=== PATIENT | male | born 1975 | race Caucasian/White ===

== ENCOUNTER 2018-08-15 11:15 | Emergency (ER) | payer BC, SELFPAY ==
--- NOTE | 2018-08-15 11:21 | W.ED.GENAD ---
Discharge Plan Disposition Patient Disposition: HOME Condition: Stable Discharge Details Chief Complaint: Cellulitis Clinical Impression: Cellulitis of right middle finger Primary Care Provider: Bernadette Florentino ED Provider: Godfrey Chávez Home Meds and New Rx's Prescriptions: New sulfamethoxazole-trimethoprim [Bactrim DS] 800-160 mg tablet 1 tab PO BID Qty: 14 RF: 0 amoxicillin-pot clavulanate [Augmentin] 875-125 mg tablet 1 tab PO BID Qty: 14 RF: 0 No Action naproxen sodium [Aleve] 220 MG tablet 440 mg PO BID RF: 0 sumatriptan succinate 100 MG tablet 1 tab PO PRN PRNRF: 0 Discharge Instructions Instructions: Cellulitis (ED) Additional Instructions: you should be contacted with an appointment with orthopedics if you have severe worsening of pain or redness spreading up the hand or down the finger return to the emergency department you can take 1000mg tylenol and 600mg ibuprofen every 6 hours as needed for pain Medical Decision Making 42 yo male comes in with several days of right middle finger swelling and pain. He states over a week or so ago he had a splinter in the finger that he removed and started to have swelling of the finger and redness so came here. on exam the proximal right anterior middle finger is swollen and red. HE does have full flexion of the finger and no pain elsehwere along the finger to suggest flexor tenosynovitis at this time. There is no flucutance and on bedside u/s has no evidence of retained foreign body or abscess at this time. Given the amount of swelling that is located I am starting him on abx but would also like a reevaluation by orthopedics this week if possible for reeval and advised strict return precautions Differential Diagnosis cellulitis, abscess HPI General Mode of arrival: ambulatory. Date/Time Provider Initiated Documentation: 08/15/18 11:21. Limitations to Documentation: no limitations. Information obtained by: patient. History of Present Illness 42 year old M presents to the emergency department with the chief complaint of right middle finger swelling, Quality is described as aching, and is localized to the right and upper extremity. Patient reports no radiation. Patient started experiencing this day(s) (4) and it has been constant. No relieving factors improve symptom(s), No exacerbating factors reported . Patient notes no other symptoms.. Patient did receive the following treatments prior to arrival, none Related Data Home Medications Medication Instructions Recorded Confirmed sumatriptan succinate 1 tab PO PRN PRN 03/09/14 08/15/18 naproxen sodium [Aleve] 440 mg PO BID 09/17/16 08/15/18 amoxicillin-pot clavulanate 1 tab PO BID #14 tab 08/15/18 [Augmentin] sulfamethoxazole-trimethoprim 1 tab PO BID #14 tab 08/15/18 [Bactrim DS] Previous Rx's Medication Instructions Recorded amoxicillin-pot clavulanate 1 tab PO BID #14 tab 08/15/18 [Augmentin] sulfamethoxazole-trimethoprim 1 tab PO BID #14 tab 08/15/18 [Bactrim DS] Allergies Allergy/AdvReac Type Severity Reaction Status Date / Time No Known Allergies Allergy Unverified 08/15/18 11:33 Review of Systems Review of Systems All systems reviewed & are unremarkable except as noted in HPI and below Constitutional Denies chills and Denies fever(s) Cardiovascular Denies chest pain and Denies dyspnea Respiratory Denies dyspnea Gastrointestinal Denies abdominal pain, Denies nausea and Denies vomiting Musculoskeletal Denies joint swelling [facility] Social History Smoking/Tobacco Use Status: Current-Occasional Exam Const General: no acute distress Orientation: alert HENMT Head: normal to inspection Ears: external ears normal General nose exam: external nose normal Mouth: moist mucous membranes Eyes General: appearance normal, both eyes and all related structures Neck Neck: normal visual inspection Resp Effort & Inspection: normal respiratory effort and able to speak in complete sentences Cardio Rate: regular rate Skin General skin exam: no rashes or lesions noted Neuro General: alert and oriented x3 Extrem General: normal capillary refill and other (see medical decision making) Right upper extremity: normal capillary refill Psych Mental Status: mental status grossly normal
[2018-08-15 11:31] VITALS: BP 133/89; PULSE 69; RESP 16; TEMP 36.6; O2SAT 99
--- NOTE | 2018-08-15 11:45 | ED.GENADUL_ITS ---
Discharge Plan Disposition Patient Disposition: HOME Condition: Stable Discharge Details Chief Complaint: Cellulitis Clinical Impression: Cellulitis of right middle finger Primary Care Provider: Bernadette Florentino ED Provider: Godfrey Chávez Home Meds and New Rx's Prescriptions: New sulfamethoxazole-trimethoprim [Bactrim DS] 800-160 mg tablet 1 tab PO BID Qty: 14 RF: 0 amoxicillin-pot clavulanate [Augmentin] 875-125 mg tablet 1 tab PO BID Qty: 14 RF: 0 No Action naproxen sodium [Aleve] 220 MG tablet 440 mg PO BID RF: 0 sumatriptan succinate 100 MG tablet 1 tab PO PRN PRNRF: 0 Discharge Instructions Instructions: Cellulitis (ED) Additional Instructions: you should be contacted with an appointment with orthopedics if you have severe worsening of pain or redness spreading up the hand or down the finger return to the emergency department you can take 1000mg tylenol and 600mg ibuprofen every 6 hours as needed for pain Medical Decision Making 42 yo male comes in with several days of right middle finger swelling and pain. He states over a week or so ago he had a splinter in the finger that he removed and started to have swelling of the finger and redness so came here. on exam the proximal right anterior middle finger is swollen and red. HE does have full flexion of the finger and no pain elsehwere along the finger to suggest flexor tenosynovitis at this time. There is no flucutance and on bedside u/s has no evidence of retained foreign body or abscess at this time. Given the amount of swelling that is located I am starting him on abx but would also like a reevaluation by orthopedics this week if possible for reeval and advised strict return precautions Differential Diagnosis cellulitis, abscess HPI General Mode of arrival: ambulatory . Date/Time Provider Initiated Documentation: 08/15/18 11:21 . Limitations to Documentation: no limitations . Information obtained by: patient . History of Present Illness 42 year old M presents to the emergency department with the chief complaint of right middle finger swelling, Quality is described as aching, and is localized to the right and upper extremity. Patient reports no radiation. Patient started experiencing this day(s) (4) and it has been constant. No relieving factors improve symptom(s), No exacerbating factors reported . Patient notes no other symptoms.. Patient did receive the following treatments prior to arrival, none Related Data Home Medications Medication Instructions Recorded Confirmed sumatriptan succinate 1 tab PO PRN PRN 03/09/14 08/15/18 naproxen sodium [Aleve] 440 mg PO BID 09/17/16 08/15/18 amoxicillin-pot clavulanate 1 tab PO BID #14 tab 08/15/18 [Augmentin] sulfamethoxazole-trimethoprim 1 tab PO BID #14 tab 08/15/18 [Bactrim DS] Previous Rx's Medication Instructions Recorded amoxicillin-pot clavulanate 1 tab PO BID #14 tab 08/15/18 [Augmentin] sulfamethoxazole-trimethoprim 1 tab PO BID #14 tab 08/15/18 [Bactrim DS] Allergies Allergy/AdvReac Type Severity Reaction Status Date / Time No Known Allergies Allergy Unverified 08/15/18 11:33 Review of Systems Review of Systems All systems reviewed & are unremarkable except as noted in HPI and below Constitutional Denies chills and Denies fever(s) Cardiovascular Denies chest pain and Denies dyspnea Respiratory Denies dyspnea Gastrointestinal Denies abdominal pain, Denies nausea and Denies vomiting Musculoskeletal Denies joint swelling [facility] Social History Smoking/Tobacco Use Status: Current-Occasional Exam Const General: no acute distress Orientation: alert HENMT Head: normal to inspection Ears: external ears normal General nose exam: external nose normal Mouth: moist mucous membranes Eyes General: appearance normal, both eyes and all related structures Neck Neck: normal visual inspection Resp Effort & Inspection: normal respiratory effort and able to speak in complete sentences Cardio Rate: regular rate Skin General skin exam: no rashes or lesions noted Neuro General: alert and oriented x3 Extrem General: normal capillary refill and other (see medical decision making) Right upper extremity: normal capillary refill Psych Mental Status: mental status grossly normal
== END 2018-08-15 11:50 | disposition home or self-care (01) ==
LOC: ER 12:09
PROVIDERS: Emergency Provider Emergency Medicine; PCP Nurse Practitioner Family
DX: L03.011 Cellulitis of right finger (principal)
CPT/HCPCS: 99283

== ENCOUNTER 2020-10-02 09:41 | Emergency (ER) | payer BC, SELFPAY ==
[2020-10-02 09:45] VITALS: BP 147/109; PULSE 90; RESP 16; TEMP 36; O2SAT 99
--- NOTE | 2020-10-02 09:50 | W.ED.GENAD ---
Discharge Plan Disposition Patient Disposition: HOME Condition: Stable Discharge Details Clinical Impression: Laceration of skin of left wrist Primary Care Provider: Bernadette Florentino ED Provider: Araceli Gonzalez Home Meds and New Rx's Prescriptions: No Action naproxen sodium [Aleve] 220 MG tablet 440 mg PO BID RF: 0 Discharge Instructions Instructions: Laceration (ED) Additional Instructions: Leave wound alone for the first 12 to 24 hours. Tomorrow morning you may wash laceration under running soap and water. Keep clean and dry. No soaking. Return to the ED for any signs of infection including increased redness, swelling, drainage worsening pain or any concerns. Have sutures removed in 7 days. Please take Tylenol or Ibuprofen with food every 4-6 hours as needed for pain and swelling. Follow up with primary care provider in 3-5 days if needed. Return to ED sooner if any worsening or concerns. Increase oral fluids. Referrals: Bernadette Florentino [Primary Care Provider] - Medical Decision Making 45-year-old male presents to the ER chief complaint of left wrist laceration. Patient states that he was using woodworking tools (chisel) to cut a piece of plastic. This occurred approximately 30 minutes prior to arrival. He does have a approximately 1.5 cm laceration noted to the palmar surface of his left wrist, bleeding is controlled at this time. I did discuss plan of care including offering imaging, patient does state that he was not working with wood and was trying to cut a piece of plastic, he states that there was a little possibility for retained foreign body. Therefore at this time imaging was not done. 1004: Patient became lightheaded during clean per RN and tech staff, patient was placed in soft reverse Trendelenburg, he feels better. 1038: Laceration was infiltrated with 1% lidocaine with epinephrine anesthesia was partially achieved, laceration repaired with four-point 0 Ethilon 3 simple interrupted sutures. Wound was well approximated. Patient tolerated without difficulty. Discussed home care and to return to have sutures removed in 5 to 7 days. Discussed strict return instructions including signs of infection and or wound opening back up. Patient verbalized understanding. Patient did receive a Tdap booster here in the department today. This text was generated using [employer] system, please disregard any oddities of phrase or misspellings. HPI General Mode of arrival: ambulatory. Date/Time Provider Initiated Documentation: 10/02/20 09:41. Limitations to Documentation: no limitations. Information obtained by: patient. HPI Narrative: 45-year-old male presents to the ER chief complaint of left wrist laceration. Patient states that he was using woodworking tools (chisel) to cut a piece of plastic. This occurred approximately 30 minutes prior to arrival. He does have a approximately 1.5 cm laceration noted to the palmar surface of his left wrist, bleeding is controlled at this time. Related Data Home Medications Medication Instructions Recorded Confirmed naproxen sodium [Aleve] 440 mg PO BID 09/17/16 10/02/20 Allergies Allergy/AdvReac Type Severity Reaction Status Date / Time No Known Allergies Allergy Unverified 08/24/18 09:44 General Stated Complaint: Laceration ARACELI: 4 Review of Systems All systems reviewed & are unremarkable except as noted in HPI and below Integumentary/Breasts Skin/Breast: Reports wounds (Laceration left wrist accidental, superficial underlying areas are intact.) [facility] Social History Smoking/Tobacco Use Status: Current-Occasional Smoking risk assessment performed?: Yes Alcohol Intake: never Drug use: Never Substance use type: does not use Do you feel safe at home: Yes Do you feel safe in your relationship?: Yes Exam Narrative Exam Narrative: Constitutional: Alert and oriented x3. Appears stated age. Normal body habitus. Head: Normocephalic, no trauma. Chest: RRR, Normal S1, S2, distal pulses intact. Resp: Lungs clear to auscultation bilaterally, no wheezes, rales, or rhonchi. Musculoskeletal: Normal gait, laceration noted approximately 1.5 cm to the palmar surface of the left wrist, bleeding is controlled upon arrival, underlying anatomy is intact. Patient has intact wrist flexion and extension, is able to flex and extend hand. Skin: No suspicious rashes or lesions. Capillary refill less than 2 sec. Extrem Hand/finger images: 1. 1.5 cm linear laceration Course Vital Signs Vital signs: Vital Signs Temperature 36.0 C L 10/02/20 09:45 Pulse 90 10/02/20 09:45 Respiratory Rate 16 10/02/20 09:45 Blood Pressure 147/109 H 10/02/20 09:45 Pulse Oximetry 99 10/02/20 09:45 Temperature 36.0 C L 10/02/20 09:45 Temperature Source Skin 10/02/20 09:45 Pulse 90 10/02/20 09:45 Respiratory Rate 16 10/02/20 09:45 Respiratory Effort 10/02/20 09:47 Blood Pressure 147/109 H 10/02/20 09:45 Blood Pressure Position Sitting 10/02/20 09:45 Pulse Oximetry 99 10/02/20 09:45 Oxygen Delivery Method Room Air 10/02/20 09:45 Oxygen Flow Rate 0 10/02/20 09:45 Procedures Laceration Laceration 1: Site: upper extremity (Left wrist) Side (If applicable): left Size (cm): 1.5 Description: linear Depth: simple, single layer Local Anesthetic: Lidocaine 1% and with Epi Amount of anesthesia used (mL): 1.5 Pre-repair: wound explored, irrigated extensively and deep structures intact Skin layer closed with: nylon (ethilon) Size (cm): 4-0 Number of sutures: 3 Technique: simple, interrupted
== END 2020-10-02 11:00 | disposition home or self-care (01) ==
PROVIDERS: Emergency Provider Registered Nurse Emergency; PCP Nurse Practitioner Family
DX: S61.512A Laceration without foreign body of left wrist, initial encounter (principal); W26.8XXA Contact with other sharp object(s), not elsewhere classified, initial encounter; Y99.0 Civilian activity done for income or pay
CPT/HCPCS: 12001; 90471

== ENCOUNTER 2023-12-17 11:54 | Emergency (ER) | payer BC, SELFPAY ==
--- NOTE | 2023-12-17 11:59 | ED.GENADUL_ITS ---
Discharge Plan Disposition Patient Disposition: Home Discharge Details Clinical Impression: Laceration of hand, left Primary Care Provider: Bernadette Florentino ED Provider: Garry Monsalve Home Meds and New Rx's Prescriptions: No Action naproxen sodium [Aleve] 220 MG tablet 440 mg PO BID Discharge Instructions Instructions: Laceration (ED) Additional Instructions: You were seen in the emergency department for your left hand laceration laceration which was closed with a total of 6 sutures that will need to be removed in 7 to 10 days. As we discussed, please keep your wound clean, dry and covered. Please do not soak in a tub, swim or engage in any activities which could introduce dirt into your wound. You may return to the emergency department, go to urgent care or go to your primary care provider in 7 to 10 days to have your stitches removed. As we discussed if you develop any foul- smelling drainage fevers streaking signs of infection or have any other concerns please return to the emergency department. For your pain please take medications as follows: 1. Take acetaminophen (Tylenol), 1,000 mg (two 500 mg tabs) every 6 hours [2. Take ibuprofen (Advil), 400 mg every 6 hours.] Discharge Data Discharge Date/Time-TO BE ENTERED AT DEPARTURE: 12/17/23 13:44 HPI General Date/Time Provider Initiated Documentation: 12/17/23 11:59 . HPI Narrative: MDM This is an overall very well-appearing [id number] normothermic and not tachycardic 48-year-old male with left long finger lacerations which will require primary closure in the ED. Patient's tetanus has been updated less than 5 years ago so no indication for repeat tetanus immunization. No preceding chest pain or syncope so I did not obtain ECG. No shortness of breath to suggest PE. No pain out of proportion to suggest necrotizing soft tissue infection. No fluctuance to suggest felon. Patient has intact range of motion in his left hand so I am not concerned for any tendinous injuries. Patient is not a diabetic and does not have any increased risk for poor wound healing so we will defer prophylactic antibiotics at this point in time. Patient and I discussed return to the ED for streaking signs of infection fevers chills or foul-smelling drainage. He understood his return indications and was discharged with an empiric trial of expectant outpatient management. HPI This is a previously healthy 48-year-old [id number] male arriving to the emergency department via private vehicle following lacerations he sustained just prior to arrival using a circular saw at a job site. Patient inadvertently lost control of the saw. He has had no limitations in his range of movement. His bleeding has been controlled. His tetanus was updated less than 5 years ago. He reports lacerations to his left long and index fingers. He woke in his usual state of health with no chest pain shortness of breath nausea vomiting dysuria nor frequency. Exam General: Well-appearing in no acute distress speaking in complete sentences. Head: Normocephalic, atraumatic. Eye: Extraocular eye movements intact. No conjunctival injection. No scleral icterus. Ear, nose, mouth, throat: Grossly normal inspection. Normal voice, handling secretions normally. Neck: Trachea midline. Cardiovascular: Well-perfused distal extremities. Respiratory: Nonlabored respiration. Gastrointestinal: Nondistended abdomen. Musculoskeletal: Left hand has lacerations to the index and long fingers. Left hand warm and well-perfused with less than 2-second cap refill in the left fingertips. Sensation and motor function intact in the left hand across the radial, median, and ulnar nerve distributions. 2+ left radial pulse. Left index finger: 3 superficial lacerations on the palmar aspect of the left index finger that are hemostatic. Full range of motion of the left index finger Left long finger: 2 approximately 2 cm hemostatic lacerations to the palmar aspect of the left long finger distal to the DIP joint. Full range of motion in left index finger across the MCP, PIP, and DIP joints. Skin: Normal for age and race, grossly normal temperature and turgor. No acute rash. Neurologic: Alert and appropriate, no apparent acute deficits. Psychiatric: Mood and manner are appropriate. Grooming and personal hygiene are appropriate. Related Data Home Medications Medication Instructions Recorded Confirmed naproxen sodium 220 mg tablet 440 mg PO BID 09/17/16 10/02/20 (Aleve) Allergies Allergy/AdvReac Type Severity Reaction Status Date / Time No Known Allergies Allergy Unverified 08/24/18 09:44 General ARACELI: 4 Procedures Laceration Laceration 1: Site: hand Side (If applicable): left Size (cm): 3 Description: linear Depth: simple, single layer Local Anesthetic: other anesthetic (LET & digital block) Amount of anesthesia used (mL): 3 Pre-repair: wound explored and irrigated extensively Skin layer closed with: nylon Size (cm): 4-0 Number of sutures: 4 Technique: simple, interrupted Size: 4-0 (Prolene) Laceration 2: Site: hand Side (If applicable): left Size (cm): 2 Description: linear Depth: simple, single layer Local Anesthetic: other anesthetic (LET & digital block) Amount of anesthesia used (mL): 3 Pre-repair: wound explored and irrigated extensively Skin layer closed with: nylon Size (cm): 4-0 Number of sutures: 2 Technique: simple, interrupted Subcutaneous layer closed with: other (Prolene) Medical Decision Making Quality:SDOH Health Related Social Needs: No Data to Display PFSH All Active Problems (Updated 12/17/23 @ 12:18 by Garry Monsalve MD) Laceration of hand, left (Acute) Laceration of skin of left wrist (Acute) Social History Smoking/Tobacco Use Status: Current-Occasional Smoking risk assessment performed?: Yes Alcohol Intake: never Drug use: Never Substance use type: does not use Do you feel safe at home: Yes Do you feel safe in your relationship?: Yes
[2023-12-17 12:00] VITALS: BP 123/94; PULSE 84; RESP 15; TEMP 37.1; O2SAT 98
[2023-12-17] MEDS: Lidocaine/Epinephri/Tetracaine Topical Gel 3 ML TP (12:18)
[2023-12-17 13:44] VITALS: BP 120/70; PULSE 72; RESP 16; TEMP 37.1; O2SAT 98
== END 2023-12-17 13:44 | disposition home or self-care (01) ==
LOC: ER 13:27
PROVIDERS: Emergency Provider Emergency Medicine; PCP Nurse Practitioner Family
DX: S61.412A Laceration without foreign body of left hand, initial encounter (principal); S61.512A Laceration without foreign body of left wrist, initial encounter; W31.2XXA Contact with powered woodworking and forming machines, initial encounter; Y99.0 Civilian activity done for income or pay
CPT/HCPCS: 12002; 64450

== ENCOUNTER 2024-08-05 08:13 | Day surgery (SDC) | payer OTHER, SELFPAY ==
--- NOTE | 2024-08-04 08:57 | W.PM.DSUDISC ---
Date of service: 08/05/24 Discharge Plan Disposition Patient Disposition: Home Condition: Good Discharge Details Reason For Visit: screening colonoscopy Attending Provider: Jovan Callaway Primary Care Provider: Bernadette Bailey Home Meds and New Rx's Prescriptions: Continued naproxen sodium [Aleve] 220 MG tablet 440 mg PO BID hydroxyzine HCl 25 mg tablet 25 mg PO QHS Rx Instructions: 1-2 tab by mouth at bedtime sumatriptan succinate 100 mg tablet See Rx Instructions PO .COMPLEX Rx Instructions: take 1 tab at onset of headache; if no relief, may repeat 1 tab after at least 2 hrs; max = 2 tabs/24 hrs PO trazodone 50 mg tablet 50 mg PO QHS PRN triamcinolone acetonide 0.5 % cream 1 applic topical BID ondansetron 4 mg tablet,disintegrating 4 mg PO Q8H Qty: 10 0RF Discontinued bisacodyl [Dulcolax (bisacodyl)] 5 mg tablet,delayed release (DR/EC) 5 mg PO ONCE Qty: 4 0RF Rx Instructions: Take per colonoscopy instructions provided by ordering providers office polyethylene glycol 3350 17 gram/dose powder 17 g PO ONCE Qty: 238 0RF Rx Instructions: Take per colonoscopy instructions provided by ordering providers office Discharge Instructions Additional Instructions: Ramy was very nice meeting you today, and I hope you are comfortable through the colonoscopy. Everything went very smoothly. Your prep was excellent negative everything fine. I did not see any signs of tumors, polyps, or any other abnormalities. With a negative screening colonoscopy and only a single second-degree relative with a history of colon cancer, I would consider you low risk, and recommended 10-year interval for your next screening. If any other family members turned up with colon cancer, or with adenomatous polyps, then you could shorten that interval to every 5 years. If you have any questions at all, please do not hesitate to ask at any point. 1. If tolerated, consume a soft, low fiber diet for 1-2 days. [address] not drive, drink alcohol, operate machinery, make critical decisions, or do activities that require coordination or balance for 24 hours. 3. Because air was put into your colon during the procedure, expelling air from your rectum (passing gas or farting) is normal. 4. You may not have a bowel movement for 1-3 days because of the colonoscopy prep. This is normal. 5. Go directly to the emergency room if you notice any of the following: Develop chills (warm to touch), or if you have a thermometer and your temperature is above 101 Difficulty breathing or difficultly swallowing Persistent vomiting Severe abdominal pain, other than gas cramps Severe chest pain Black, tarry stools Any bleeding ? exceeding one tablespoon 6. Call your physician if the site where your intravenous was started becomes red, swollen, painful, and warm to touch. 7. Your physician has reviewed your pre-procedure medications. Please continue to take those medications as previously ordered. You will be given specific information/education regarding any changes to your medications before leaving. Stand Alone Forms: Anesthesia Discharge InstCamron Car (DSU) Activity:: Activity as Tolerated Diet:: As Tolerated Discharge Orders Discharge Orders: Discharge Order (Routine); Ordered 08/04/24 Ordered By: Jovan Callaway DS: Diagnosis Discharge Diagnosis (1) Encounter for screening colonoscopy: Status: Acute Asessment and Plan: Negative screening colonoscopy; follow-up in 10 years
--- NOTE | 2024-08-04 08:58 | W.COLOREPORT ---
Date of service: 08/05/24 Time of Service: 10:06 Colonoscopy Report Date of procedure: 08/05/24 Pre-op diagnosis general: screening colonoscopy Post-op diagnosis procedure note: other (Negative screening colonoscopy) Procedure: colonoscopy Surgeon: Jovan Callaway Anesthesia Type: General:No Airway Estimated blood loss (mL): 0 Pathology: none sent Complications: None Disposition: same day Indications: Ramy is a 48 year old man who needs a screening colonoscopy Prep: Miralax/Dulcolax Procedure Start Time: 09:45 Procedure End Time: 09:59 Retraction Time: 7 Findings: Normal screening colonoscopy Procedure Description: After the induction of anesthesia, and with Ramy in left lateral decubitus position, I began by performing an external anorectal exam.? Perineum and skin were normal, as was the anal verge.? There was no evidence of external hemorrhoids.? Next, I performed a digital rectal exam.? I did not appreciate any abnormal findings.? Next, I advanced a colonoscope into the rectal vault.? I performed retroflexion.? This appeared normal.? Using insufflation, I then advanced the colonoscope beyond the rectal folds and into the sigmoid colon before advancing towards the cecum.? The quality of the prep was excellent.? The scope was noted to be in the cecum by identification of the ileocecal valve and appendiceal orifice.? I then began withdrawing the colonoscope using repeated irrigation as necessary for full evaluation of the colonic mucosa. ?Once the scope was withdrawn to the level of the rectum, great care was taken to examine portions of the rectal folds. I saw no signs of tumors, polyps, or any other pathology.? Finally, the scope was withdrawn and the patient was brought to the same-day surgery recovery unit as the anesthetic wore off. ?The findings and instructions were shared with the patient prior to discharge. Freeman Spur Bowel Prep Freeman Spur Bowel Prep Right Colon: 3 Left Colon: 3 Transverse Colon: 3 Total Score: 9
--- NOTE | 2024-08-04 18:39 | W.ANESPRE ---
General Info Date of Service Date Performed: 08/05/24 Height: 5 ft 10 in Weight: 92.986 kg Body Mass Index (BMI): 29.4 Surgical Procedure: Operation Date: 08/05/24 09:50 Proposed Procedure Side Surgeon p Reese Callaway MD Meds Allergies and Home Medications Allergies Allergy/AdvReac Type Severity Reaction Status Date / Time No Known Allergies Allergy Verified 08/05/24 08:40 Home Medication ?Medication ?Instructions ?Recorded naproxen sodium 220 mg tablet 440 mg PO BID 09/17/16 (Aleve) hydroxyzine HCl 25 mg tablet 25 mg PO QHS 07/15/24 sumatriptan succinate 100 mg tablet See Rx Instructions PO .COMPLEX 07/15/24 trazodone 50 mg tablet 50 mg PO QHS PRN 07/15/24 triamcinolone acetonide 0.5 % 1 applic topical BID 07/15/24 topical cream ondansetron 4 mg disintegrating 4 mg PO Q8H #10 tabs 08/04/24 tablet Current Visit Medications: Current Medications Generic Name Dose Route Start Last Admin Trade Name Phaniq PRN Reason Stop Dose Admin IV Miscellaneous Supplies 1 each 08/05/24 06:00 Iv Access IV 08/05/24 23:59 DIRECTED MARISABEL Ondansetron HCl 4 mg 08/04/24 08:59 Ondansetron 4 Mg/2 Ml Vial IVP 09/03/24 08:58 Q4H PRN PRN Nausea / Vomiting Sodium Chloride 0 ml 08/05/24 06:00 Normal Saline Flush 10 Ml Syr IV 08/05/24 23:59 PRN PRN Sodium Chloride 0 ml 08/05/24 06:00 Normal Saline 10 Ml Vial IJ 08/05/24 23:59 DIRECTED PRN Sterile Water 0 ml 08/05/24 06:00 Water,Injection,Sterile 10 Ml Vial IJ 08/05/24 23:59 DIRECTED PRN PFSH Active Problems Active Problems: Problem Status Onset Code Encounter for screening colonoscopy Acute Z12.11 Laceration of skin of left wrist Acute S61.512A Medical History Medical History Chronic migraine without aura Restless leg Insomnia Tobacco Smoking/Tobacco Use Status: Current every day Tobacco Type: e-cigarettes Alcohol Alcohol Intake: never Substance Use Substance use: Never Substance use type: does not use Vital Signs and Lab Results Vital Signs Most Recent Vital Signs in EMR: Temp Pulse Resp BP Pulse Ox 36.3 C L 70 16 131/89 97 08/05/24 08:41 08/05/24 08:41 08/05/24 08:41 08/05/24 08:41 08/05/24 08:41 Lab Results Blood Type / Crossmatch: No Data to Display Complete Blood Count: No Data to Display Complete Metabolic Panel: No Data to Display Liver Function Panel: No Data to Display Coagulation Panel: No Data to Display Cardiac Panel: No Data to Display Arterial Blood Gas: No Data to Display Venous Blood Gas: No Data to Display Pancreas Panel: No Data to Display Thyroid Panel: No Data to Display Infectious Disease: No Data to Display Blood Cultures: No Data to Display Toxicology Panel: No Data to Display Anesthesia Assessment and Plan Anesthesia History Personal History: No History of General Anesthesia Family History: No Family History of Anesthesia Complications Exercise Tolerance Exercise Tolerance: Metabolic Equivalents>4 Cardiac & Pulmonary Exam Cardiac Exam: Normal S1/S2 Heart Sounds Pulmonary Exam: Clear Bilateral Breath Sounds Implantable Cardiac Device Does patient have a Pacemaker or an ICD?: No Airway Exam Known Difficult Airway: No Mallampati Class: 2 Mouth Opening: Normal (> 3cm) Thyromental Distance: Greater than 3 cm Neck Range of Motion: Full ROM Neck Circumference: Normal Teeth Condition: Normal Dentition ASA Classification ASA Score: ASA 2 Emergency Case?: No NPO Status NPO Status: NPO Clears >2 hours, Solids >8 hours Anesthesia Plan Resuscitation Status: Full Code Anesthesia Technique: General Anesthesia Airway Planned: Natural Airway Monitors Used: Standard Monitors Preoperative Comments:: 48 yo male for colo. Sig PMHx: RLS, migraine (took sumatriptan today), e cig, Denies GERD. Approp NPO.
[2024-08-05 08:41] VITALS: BP 131/89; PULSE 70; RESP 16; TEMP 36.3; O2SAT 97
[2024-08-05] MEDS: Lactated Ringers 1,000 ML 80 ML IV (09:02)
[2024-08-05 09:10] VITALS: BMI 29.4
[2024-08-05 10:05] VITALS: BP 119/84; PULSE 63; RESP 16; TEMP 35.8; O2SAT 98
--- NOTE | 2024-08-05 10:17 | W.ANESPOSTOP ---
Postoperative Evaluation Date, Time and Location Date Performed: 08/05/24 Time Performed: 10:17 Patient Location: Day Surgery Unit Vital Signs Most Recent Imported Vital Signs: Most Recent Vital Signs Temp Pulse Resp BP Pulse Ox 35.8 C L 63 16 119/84 98 08/05/24 10:05 08/05/24 10:05 08/05/24 10:05 08/05/24 10:05 08/05/24 10:05 Pain Score Most Recent Pain Score: Most Recent Pain Score Pain Level 0 08/05/24 10:05 Assessment Mental Status: Awake (Alert & Oriented to Patient Baseline) Airway and Respiratory Function: Patent airway with normal (patient baseline) respiratory exam Cardiovascular Function: Hemodynamically Stable Hydration Status: Adequately Hydrated Nausea & Vomiting: No Nausea or Vomiting Pain: Pt. Denies Any Pain Peripheral Nerve Block: Patient did not receive a nerve block
[2024-08-05 10:34] VITALS: BP 123/63; PULSE 70; RESP 16; TEMP 36.2; O2SAT 99
== END 2024-08-05 10:35 | disposition home or self-care (01) ==
PROVIDERS: PCP Nurse Practitioner Family; Visit Provider Surgery
PROC: 0DJD8ZZ Inspection of Lower Intestinal Tract, Via Natural or Artificial Opening Endoscopic (ICD-10-PCS; CPT 45378; principal; 2024-08-05 09:45)
DX: Z12.11 Encounter for screening for malignant neoplasm of colon (principal)
CPT/HCPCS: 45378; J2704